=== PATIENT | male | born 1960 | race Caucasian/White ===

== ENCOUNTER 2022-09-03 08:28 | Outpatient (CLI) | payer OTHER, SELFPAY ==
--- NOTE | 2022-09-03 09:10 | ECHO_ITS ---
Patient Info Name: Beka Mcclendon Age: 62 years : 1960 Gender: Male Ht: 72 in Wt: 230 lbs BSA: 2.33 m2 HR: 68 bpm BP: 113 / 67 mmHg Technical Quality: Good Exam Date: 09/03/2022 9:40 AM Exam Location: [facility] Patient Status: Outpatient Admit Date: 09/03/2022 Staff Ordering Physician: Luis Daniel Quan DO Agronomy Instructor: Matthew Suresh RDCS Attending Provider: Luis Daniel Quan DO Referring Physician: Kadeem JHAVEIR; Exam Type: CA echo doppler color flow Study Info Indications I51.9 - Heart disease, unspecified Complete two-dimensional, color flow and Doppler transthoracic echocardiogram is performed. Summary 1. Complete two-dimensional, color flow and Doppler transthoracic echocardiogram is performed. 2. Left ventricular systolic function is globally moderately reduced, estimated at 40-45%. 3. Left ventricular chamber dimension is moderately enlarged. 4. There is mildly increased left ventricular wall thickness. 5. The left ventricular diastolic function is grade I diastolic dysfunction. 6. E/e' 25 is elevated. 7. Right ventricular systolic function is reduced based on abnormal TAPSE 1.5 cm. 8. Left atrial chamber dimension is mildly enlarged. 9. There is moderate aortic valve sclerosis. 10. There is mild aortic valve stenosis with a peak velocity of 249 cm/s, mean gradient of 17 mmHg, and aortic valve area of 1.5 cm2. 11. There is trace aortic valve regurgitation. 12. The mitral valve has mildly thickened leaflets. 13. There is mild mitral valve stenosis with valve area of 1.9 cm2 and mean gradient of 4 mmHg. 14. There is mild to moderate mitral valve regurgitation. 15. There is mild tricuspid valve regurgitation. 16. There is trace pulmonic regurgitation. Left Ventricle E/e' 25 is elevated. Left ventricular systolic function is globally moderately reduced, estimated at 40-45%. Left ventricular chamber dimension is moderately enlarged. There is mildly increased left ventricular wall thickness. The left ventricular diastolic function is grade I diastolic dysfunction. Right Ventricle Right ventricular systolic function is reduced based on abnormal TAPSE 1.5 cm. Right ventricular chamber dimension is not well visualized. Left Atria Left atrial chamber dimension is mildly enlarged. Right Atria Right atrial chamber dimension is normal. Aortic Valve The aortic valve is trileaflet. There is moderate aortic valve sclerosis. There is mild aortic valve stenosis with a peak velocity of 249 cm/s, mean gradient of 17 mmHg, and aortic valve area of 1.5 cm2. There is trace aortic valve regurgitation. Pulmonic Valve There is trace pulmonic regurgitation. Mitral Valve The mitral valve has mildly thickened leaflets. There is mild mitral valve stenosis with valve area of 1.9 cm2 and mean gradient of 4 mmHg. There is mild to moderate mitral valve regurgitation. Tricuspid Valve RVSP is not calculated due to an inadequate TR jet. There is mild tricuspid valve regurgitation. Pericardium/Pleural There is no pericardial effusion. Inferior Vena Cava Normal inferior vena cava with >50% collapse upon inspiration consistent with normal right atrial pressure, 5 mmHg. Aorta The aortic root size at the sinus of Valsalva is normal. Left Ventricular Outflow Tract Name Value Normal
== END 2022-09-03 08:29 | disposition home or self-care (01) ==
LOC: ANHCARD 08:29
PROVIDERS: PCP Internal Medicine; Visit Provider Internal Medicine Cardiovascular Disease
DX: I08.3 Combined rheumatic disorders of mitral, aortic and tricuspid valves (principal)
CPT/HCPCS: 93306